=== PATIENT | male | born 1955 | race Caucasian/White ===

== ENCOUNTER 2022-10-26 13:54 | Emergency (ER) | payer MEDICARE, SELFPAY ==
--- NOTE | ~2022-10-26 | XR_ITS ---
EXAMINATION: XR finger 2nd RT min 2V DATE: 10/26/2022 14:44 INDICATION: Right hand second digit injury. TECHNIQUE: 4 views of right hand second digit were obtained. COMPARISON: None. FINDINGS: Bone alignment is normal. No fracture. There is mild osteoarthritis of second metacarpophal angeal joint and proximal and distal interphalangeal joints. There is a dystrophic calcification dors al to neck of second proximal phalanx. IMPRESSION: 1. Mild polyarticular osteoarthritis. Reviewed, dictated and finalized at location A.
[2022-10-26 14:04] VITALS: BP 113/71; PULSE 83; RESP 20; TEMP 36.9; O2SAT 99
--- NOTE | 2022-10-26 14:29 | ED.UPPEXIN ---
HPI - Extremity Injury (Upper) General Chief Complaint: Extremity Injury, Upper Stated Complaint: Right hand first finger smashed Source: patient and RN notes reviewed History of Present Illness HPI narrative: 67 yo M presents to urgent care with complaints of a laceration to his right index finger. Pt states [employer], a press table fell onto his finger. Pt reports some numbness and tingling. Pt unsure when his last Tdap was. Pt has no other injuries. Related Data Home Medications Medication Instructions Recorded Confirmed glimepiride 1 mg tablet 1 mg PO QAM 10/26/22 10/26/22 hydrocodone 10 mg-acetaminophen 1 tablet PO Q6H PRN Pain 10/26/22 10/26/22 325 mg tablet insulin glargine 100 unit/mL (3 40 unit subcut QPM 10/26/22 10/26/22 mL) subcutaneous pen (Lantus Solostar U-100 Insulin) metformin 1,000 mg tablet 1,000 mg PO BID 10/26/22 10/26/22 olmesartan 20 1 tablet PO DAILY 10/26/22 10/26/22 mg-hydrochlorothiazide 12.5 mg tablet ropinirole 0.5 mg tablet 0.5 mg PO QHS 10/26/22 10/26/22 rosuvastatin 10 mg tablet 10 mg PO DAILY 10/26/22 10/26/22 Allergies Allergy/AdvReac Type Severity Reaction Status Date / Time Penicillins Allergy Intermediate Rash Verified 10/26/22 14:44 Review of Systems Review of Systems: Pertinent positives and pertinent negatives per HPI. PMFSH Comments At the time of my signature, I reviewed and agree with the nursing past medical, surgical, social, and family history. There is no relevant family history pertinent to the patient complaint. Exam Narrative: GENERAL: This is a well-nourished, well-developed patient, in no apparent distress. HEAD: normocephalic, atraumatic. EYES: Sclera clear/white. Vision is grossly intact. EARS: External ears normal, auditory canals clear and without drainage. Hearing grossly intact. NOSE: External nose normal with no obvious nasal discharge, nares without redness, no rhinorrhea. THROAT: Mucous membranes moist, posterior pharynx clear. NECK: Neck supple, non-tender without lymphadenopathy, masses or thyromegaly. CARDIOVASCULAR: Regular rate RESPIRATORY: No respiratory distress SKIN: 1.5 cm laceration to right index finger, volar side, overlying DIP joint with puncture wound to tuft of finger. bleeding controlled. cap refill < 3 sec. NEURO: awake, alert, and oriented to person, place and time. There were no obvious focal neurologic abnormalities. EXTREMITIES: No clubbing, cyanosis, or edema. No joint tenderness, effusion, or edema noted. BACK: Nontender without deformity or crepitance. No flank tenderness. Course Course Level of Care: Express Care Visit Vital Signs Vital signs: Vital Signs Temperature 98.4 F 10/26/22 14:04 Pulse Rate 83 10/26/22 14:04 Respiratory Rate 20 10/26/22 14:04 Blood Pressure 113/71 10/26/22 14:04 Pulse Oximetry 99 10/26/22 14:04 Oxygen Delivery Room Air 10/26/22 14:04 Temperature 98.4 F 10/26/22 14:04 Pulse Rate 83 10/26/22 14:04 Respiratory Rate 20 10/26/22 14:04 Blood Pressure 113/71 10/26/22 14:04 Pulse Oximetry 99 10/26/22 14:04 Oxygen Delivery Room Air 10/26/22 14:04 Reviewed Procedures Laceration Laceration 1: Date: 10/26/22 Time: 15:05 Site: upper extremity (index finger) Side (If applicable): right Size (cm): 2 Description: irregular Depth: simple, single layer Local Anesthetic: lidocaine 1% Amount of anesthesia used (mL): 2 Pre-repair: wound explored, irrigated and irrigated extensively ====== Skin Level ====== Skin layer closed with: nylon Size (cm): 4-0 Number of sutures: 5 Technique: simple, interrupted ====== Subcutaneous Layer ====== ====== Muscle Layer ====== ====== Tendon Layer ====== Dressing: LACERATION REPAIR: The procedure was explained and verbal consent obtained. The area of the laceration was prepped with [employer]
[2022-10-26] MEDS: TETANUS,DIPHTHERIA,AC PERTUSSIS ADULT (0.5 ML) BOOSTRIX IM (14:45)
== END 2022-10-26 15:30 | disposition home or self-care (01) ==
PROVIDERS: Emergency Provider Nurse Practitioner Family; PCP Internal Medicine
DX: S61.210A Laceration without foreign body of right index finger without damage to nail, initial encounter (principal); W20.8XXA Other cause of strike by thrown, projected or falling object, initial encounter; Z23 Encounter for immunization; E78.00 Pure hypercholesterolemia, unspecified; I10 Essential (primary) hypertension; E11.9 Type 2 diabetes mellitus without complications
CPT/HCPCS: 12001; 73140; 90471; 90715; 99213; G0463